=== PATIENT | male | born 1975 | race Caucasian/White ===

== ENCOUNTER → 2016-10-26 | Outpatient (CLI) | payer OTHER ==
[~2016-10-26] MED LIST: CIPRO 500MG TA500 MG PO; FLOMAX 0.40.4 MG/CAP PO; GLUCOPHAGE500 MG/TAB PO; NO HOME MEDICATIONS; NORCO 325 MG-7.1 TAB PO; PREDNISONE10 MG PO; [UNRECOGNIZED DRUG - REMARK]
== END ==
LOC: COL.RAD 09:28
DX: S09.90XA Unspecified injury of head, initial encounter (principal)